=== PATIENT | male | born 1965 | race Asian ===

== ENCOUNTER 2016-07-05 03:14 | Emergency (ER) | payer OTHER ==
[~2016-07-05] VITALS: Ht 162.6 cm; Wt 73.5 kg
[2016-07-05 03:16] VITALS: BP 190/102
[2016-07-05] MEDS ORDERED: BUPIVACAINE/PF 0.5% INFIL ONE (04:00)
[2016-07-05] MEDS ORDERED: BACITRACIN ZINC OINT 500U/GM, 0.9 GM ONE (05:00)
[2016-07-05] MEDS ORDERED: CEFTRIAXONE PMX 1GM/50ML 0 ML ONE (05:12)
[2016-07-05] MEDS ORDERED: CEFAZOLIN PMX 1GM/50ML 50 ML ONE (05:20)
[2016-07-05] MEDS ORDERED: CEFAZOLIN PMX 1GM/50ML 50 ML IV ONE (05:30)
== END 2016-07-05 05:46 | disposition home or self-care (01) ==
LOC: ED 05:39
DX: S61.011A Laceration without foreign body of right thumb without damage to nail, initial encounter (principal); I10 Essential (primary) hypertension; X58.XXXA Exposure to other specified factors, initial encounter; Y93.89 Activity, other specified; Y92.89 Other specified places as the place of occurrence of the external cause; Y99.8 Other external cause status
CPT/HCPCS: 11730; 12001; 26755; 29130; 73140; 99284; J0690; 11760

== ENCOUNTER 2018-04-01 02:25 | Emergency (ER) | payer BC, OTHER ==
[~2018-04-01] VITALS: Ht 162.6 cm; Wt 74.2 kg
[2018-04-01 02:28] VITALS: BP 195/100
[2018-04-01] MEDS ORDERED: COLCHICINE 0.6 MG TABLET PO STA (02:45)
[2018-04-01] MEDS ORDERED: IBUPROFEN 800 MG TABLET ONE (02:51)
[2018-04-01] MEDS ORDERED: COLCHICINE 0.6 MG TABLET ONE (02:52)
--- NOTE | 2018-04-01 02:56 | NUR ---
PT MEDICATED PER EMAR. 5 RIGHTS ADDRESSED
[2018-04-01] MEDS ORDERED: IBUPROFEN 800 MG TABLET PO ONE (03:00)
--- NOTE | 2018-04-01 03:50 | NUR ---
Patient/Caregiver given discharge instructions and they have confirmed that they understand the instructions. Patient ambulatory with steady gait.
== END 2018-04-01 03:52 | disposition home or self-care (01) ==
LOC: ED 03:00
DX: M79.672 Pain in left foot (principal); I10 Essential (primary) hypertension; M10.072 Idiopathic gout, left ankle and foot
CPT/HCPCS: 99284; J7512